=== PATIENT | female | born 1960 | race Caucasian/White ===

== ENCOUNTER 2020-05-25 15:41 | Outpatient (CLI) | payer BC, SELFPAY ==
--- NOTE | ~2020-05-25 | MM_ITS ---
EXAMINATION: MM screening [facility] BI w grupo HISTORY: Screening mammogram TECHNIQUE: Craniocaudal and mediolateral oblique 3-D tomosynthesis images were obtained and synthetic 2-D images were generated. CAD analysis was submitted and interpreted. COMPARISON: 11/05/2017, 10/29/2016, 03/12/2008 BREAST PARENCHYMAL COMPOSITION: The breasts are almost entirely fatty. FINDINGS: There is no evidence of suspicious mass, calcification, or architectural distortion to sugg est malignancy in either breast. There has been no suspicious interval change. IMPRESSION: 1. No mammographic evidence of malignancy. 2. Recommend routine screening mammography in one year. BI-RADS Category 1: Negative Reviewed, dictated and finalized at location A. ELAIN ENAMELING SUPERVISOR
== END 2020-05-25 15:42 | disposition home or self-care (01) ==
LOC: ANHIMG 15:47
PROVIDERS: PCP Internal Medicine; Visit Provider Obstetrics & Gynecology
DX: Z12.31 Encounter for screening mammogram for malignant neoplasm of breast (principal)
CPT/HCPCS: 77063; 77067

== ENCOUNTER 2021-11-08 10:57 | Emergency (ER) | payer BC, SELFPAY ==
--- NOTE | ~2021-11-08 | XR_ITS ---
XR abdomen/kub 1V 11/08/2021 12:23 Indication: Right flank pain. History of kidney stones. Procedure: KUB Comparison: Comparison to multiple prior studies sequentially, with oldest reviewed study dated 10/2005. Findings: There are bilateral renal stones. Bowel gas pattern is nonobstructive. No acute osseous abn ormality. Moderate colonic fecal loading. Impression: 1: Bilateral renal stones including stone likely located in the right renal pelvis at the L3 level. Reviewed, dictated and finalized at location A. Impression: 1: Bilateral renal stones including stone likely located in the right renal pel vis at the L3 level.
--- NOTE | 2021-11-08 11:23 | ED.BACK ---
HPI - Back Pain/Injury General Chief Complaint: Urogenital-Female Stated Complaint: back and side pain Time Seen by Provider: 11/08/21 11:23 Source: patient Mode of arrival: ambulatory Limitations: no limitations History of Present Illness HPI Narrative: Ms. Hayes is a 61-year-old female patient presenting to the clinic today with complaints of back and side pain x1 week. She reports she is having some right-sided flank pain that is radiating into her side/abdomen. History of kidney stones in the past. Denies any fever or chills. Denies any urinary symptoms at this time. Pain is sharp when it occurs and comes and goes in waves. Related Data Allergies Allergy/AdvReac Type Severity Reaction Status Date / Time No Known Allergies Verified 11/08/21 12:16 Review of Systems Review of Systems: Pertinent positives per HPI. Patient denies any fever, chills, rash, headache, visual changes, dizziness, cough, runny nose, sore throat, shortness of breath, chest pain, palpitations, nausea, vomiting, diarrhea, constipation, , or any urinary issues. PMFSH Comments At the time of my signature, I reviewed and agree with the nursing past medical, surgical, social, and family history. There is no relevant family history pertinent to the patient complaint. Exam Narrative: General: Well-developed, well nourished, in no apparent distress. Head: Normocephalic, atraumatic. Cardio: Regular rate and rhythm, s1 and s2 normal, no murmur appreciated. Resp: Clear to auscultation bilaterally, no rhonchi, rales, wheezing or rubs. Abdomen: Soft, pliable, bowel sounds present in all quadrants, non-tender to palpation, no organomegly, positive right-sided CVAT tenderness. Course Course Emergency Course: Portions of this record may have been created with voice recognition software. Level of Care: Express Care Visit Vital Signs Vital signs: Vital Signs Temperature 36.4 C L 11/08/21 11:32 Pulse Rate 79 11/08/21 11:32 Respiratory Rate 18 11/08/21 11:32 Blood Pressure 126/75 11/08/21 11:32 Pulse Oximetry 98 11/08/21 11:32 Oxygen Delivery Room Air 11/08/21 11:32 Temperature 36.4 C L 11/08/21 11:32 Pulse Rate 79 11/08/21 11:32 Respiratory Rate 18 11/08/21 11:32 Blood Pressure 126/75 11/08/21 11:32 Pulse Oximetry 98 11/08/21 11:32 Oxygen Delivery Room Air 11/08/21 11:32 Vital signs reviewed MDM - Back Pain/Injury MDM Narrative Medical decision making narrative: At the time of visit patient is resting comfortably on the exam table. UA shows trace of glucose, 1+ blood, and trace leukocyte. We will send for culture. X-ray was performed and shows bilateral renal stones with possible stone in the renal pelvis at L3. Blood sugar was completed in the office and was 119. Recommend follow-up with PCP and have a hemoglobin A1c completed. I suspect the patient has a kidney stone in the right renal pelvis and will give prescription for ketorolac and Flomax. Supportive measures were discussed and patient voiced understanding of discharge instructions. Differential Diagnosis Differential diagnosis: Likely lumbar radiculopathy, strain of lumbar region, renal colic and pyelonephritis (Urinary tract infection) Lab Data Labs: Lab Results 11/08/21 Range/Units 12:03 POC Capillary Glucose 119 H (65-105) mg/dl Urine Glucose Trace Reference Range: Negative Urine Bilirubin Negative Reference Range: Negative Urine Ketone Negative Reference Range: Negative Urine Specific [place] 1.030 Reference Range:1.001-1.035 Urine Blood 1+ Reference Range: Negative * *
[2021-11-08 11:32] VITALS: BP 126/75; PULSE 79; RESP 18; TEMP 36.4; O2SAT 98
[2021-11-08 12:07] LABS: Glucose Point of Care 119 mg/dl (65-105)
== END 2021-11-08 12:56 | disposition home or self-care (01) ==
PROVIDERS: Emergency Provider Nurse Practitioner Family
DX: N20.2 Calculus of kidney with calculus of ureter (principal)
CPT/HCPCS: 74018; 81003; 82948; 87086; 87088; 99213; G0463

== ENCOUNTER 2021-11-15 14:14 | Emergency (ER) | payer BC, SELFPAY ==
--- NOTE | ~2021-11-15 | XR_ITS ---
EXAMINATION: XR abdomen/kub 1V DATE: 11/15/2021 16:02 INDICATION: Right flank pain. TECHNIQUE: A supine view of the abdomen on 2 radiographs was obtained. COMPARISON: CT abdomen and pelvis 11/15/2021 FINDINGS: There are no dilated loops of bowel. There is a 7 mm stone in proximal right ureter at L4. There are stones in the kidneys measuring up to 5 mm on the right. IMPRESSION: 1. 7 mm stone in the proximal right ureter. 2. Bilateral kidney stones. Reviewed, dictated and finalized at location A.
--- NOTE | ~2021-11-15 | CT_ITS ---
EXAMINATION: CT abdomen pelvis wo con DATE: 11/15/2021 15:57 INDICATION: Right flank pain. TECHNIQUE: Computed tomography (CT) of the abdomen and pelvis was performed without intravenous contr ast. Automated exposure control and iterative reconstruction technique were employed. The dose-length product was 214.30 mGy-cm. COMPARISON: CT abdomen and pelvis 04/10/2007 FINDINGS: The visualized portions of the lung bases demonstrate mild atelectasis. A calcified left genoveva ng nodule and calcified left hilar lymph nodes are consistent with old granulomatous disease. No pleu ral effusion. The heart size is normal. No pericardial effusion. The liver, gallbladder, spleen, panc reas, and adrenal glands are normal. There are greater than 10 stones in right kidney measuring up to 5 mm. There is mild right hydronephrosis and hydroureter. There is a 7 mm stone in proximal right ur eter. There are 6 stones in left kidney measuring up to 4 mm. There are no dilated loops of bowel. Th e appendix is normal. There are no pathologically enlarged lymph nodes. There is no free intraperiton eal fluid. There is severe lower lumbar spondylosis. IMPRESSION: 1. 7 mm stone in proximal right ureter with mild right hydronephrosis and hydroureter. 2. Bilateral nonobstructing kidney stones. Reviewed, dictated and finalized at location A. IMPRESSION: 1. 7 mm stone in proximal right ureter with mild right hydronephrosis and hydro ureter. 2. Bilateral nonobstructing kidney stones.
[2021-11-15 14:25] VITALS: BP 159/98; PULSE 84; RESP 16; TEMP 36.8; O2SAT 100
[2021-11-15 14:34] LABS: Basophils Percent Auto 0.6 % (0.2-1.2); Eosinophils Absolute Auto 0.3 K/mm3 (0-0.3); Eosinophils Percent Auto 4.6 % (0-4.4); Hematocrit 39.4 % (37.0-47.0); Hemoglobin 13.7 g/dL (12.0-15.0); Immature Granulocyte Absolute 0.02 K/mm3 (0.00-0.031); Immature Granulocyte Percent A 0.3 % (0-0.5); Lymphocytes Absolute Auto 2.31 K/mm3 (0.9-3.2); Lymphocytes Percent Auto 32.2 % (18.3-44.2); Mean Corpuscular HGB Conc 34.8 g/dl (32-36); Mean Corpuscular Hemoglobin 32.5 pg (26-34); Mean Corpuscular Volume 93.6 fl (80-100); Mean Platelet Volume 8.5 fl (7.4-10.4); Monocytes Absolute Auto 0.5 K/mm3 (0.1-0.6); Monocytes Percent Auto 6.7 % (2.6-8.5); Neutrophils Percent Auto 55.6 % (45.5-73.1); Platelet Count Result 289 k/mm3 (150-375); Red Blood Count 4.21 M/mm3 (4.2-5.4); Red Cell Distribution Width 11.8 % (11.5-14.5); White Blood Count 7.2 K/mm3 (4.5-10.0)
[2021-11-15 14:45] LABS: Alanine Aminotransferase 23 U/L (6-35); Albumin Level 4.3 g/dL (3.5-5.1); Alkaline Phosphatase 57 U/L (38-126); Anion Gap 9 mmol/L (8-16); Aspartate Amino Transferase 27 U/L (14-36); Bilirubin,Total 0.5 mg/dL (0.2-1.3); Blood Urea Nitrogen 17 mg/dL (7-17); Calcium 9.1 mg/dL (8.4-10.2); Carbon Dioxide 27 mmol/L (22-30); Chloride 102 mmol/L (98-107); Estimated CRCL calculation 66 ml/min; Estimated Glomerular Filt Rate > 60; Glucose 114 mg/dL (65-110); Potassium 3.5 mmol/L (3.4-5.0); Sodium 138 mmol/L (137-145)
[2021-11-15 15:26] LABS: Appearance Urine Clear (Clear); Bilirubin Urine Negative (Negative); Blood Urine 2+ (Negative); Glucose Urine UA Negative (Negative); Ketones Urine Negative (Negative); Leukocyte Esterase Ur Trace LEU/UL (Negative); Nitrate Urine Negative (Negative); Protein Urine Negative (Negative); Urobilinogen Urine 0.2 mg/dL (<2.0)
[2021-11-15 15:33] LABS: Mucus Urine Rare /lpf; RBC Urine 0-2 /hpf (0-2); Squamous Epithelial Cell Urine Rare /hpf (Few)
[2021-11-15] MEDS: SODIUM CHLORIDE 0.9% IV 1,000 ML 999 ML IV CONT (15:33)
[2021-11-15] MEDS: MORPHINE SULFATE (*CRX) 4 MG/ML INJ IV PUSH (15:34)
[2021-11-15] MEDS: ONDANSETRON INJ 4 MG/2 ML VIAL IV PUSH (15:34)
[2021-11-15 15:35] LABS: Add Urine Microscopic? YES; Color Urine Light Yellow (Yellow)
[2021-11-15 15:42] VITALS: O2SAT 98
--- NOTE | 2021-11-15 15:42 | ED.GENADULT ---
HPI - General Adult General Chief complaint: Abdominal Pain Stated complaint: right flank pain Time Seen by Provider: 11/15/21 15:00 Source: patient, RN notes reviewed and old records reviewed Mode of arrival: ambulatory Limitations: no limitations History of Present Illness HPI narrative: This is a 61 year old female with history of kidney stones who presents for evaluation for right flank pain. She developed pain on 11/03/21. She states her pain has been waxing and waning. She also states her pain is intermittently radiating to right hip and right lower abdomen. Today her pain was worsening. She was evaluated at [facility] last week and she was told she has kidney stone on her xray. She was prescribed toradol for her pain and she has been taking flomax. She has appointment with her urologist tomorrow but she wanted to find out for sure if she had stone. She denies nausea, vomiting , fever, chills or dysuria. Related Data Allergies Allergy/AdvReac Type Severity Reaction Status Date / Time No Known Allergies Verified 11/15/21 14:28 Review of Systems Review of Systems: All systems reviewed & are unremarkable except as noted in HPI and below Constitutional: Constitutional: Denies chills, Denies fatigue and Denies fever(s) Cardiovascular: Cardiovascular: Denies chest pain Gastrointestinal: Gastrointestinal: Reports abdominal pain, Denies nausea and Denies vomiting Genitourinary: Genitourinary: Reports hematuria, Denies dysuria and Reports flank pain Musculoskeletal: Musculoskeletal: Reports back pain PMFSH Past Medical History Medical History (Updated 11/15/21 @ 22:23 by Ashley Atwood MD) Kidney stone Surgical History Surgical History (Updated 11/15/21 @ 22:23 by Ashley Atwood MD) H/O lithotripsy Social History Social History (Updated 11/15/21 @ 22:24 by Ashley Atwood MD) Smoking status: Never smoker Alcohol intake: never Substance use: never Exam Const: General: no acute distress and alert Nutritional Appearance: well nourished Orientation/consciousness: patient oriented x3 HENMT: Head: normal to inspection Eyes: EOM: EOMs intact bilaterally Resp: Effort & Inspection: normal respiratory effort Auscultation: clear to auscultation bilaterally Cardio: Rate: regular rate Rhythm: regular rhythm Heart sounds: no murmurs GI: GI Palp: Yes Soft to palpation, No Tenderness to palpation present (GI) and No Guarding due to palpation present (GI) Auscultation: normal bowel sounds : General: Yes no CVA tenderness Back/Spine/Pelvis: Back: no CVA tenderness Skin: General skin exam: normal color Rashes: no rashes Wounds: no wounds Neuro: General: patient oriented x3, moves all extremities and CN's II-XI intact bilaterally Extrem: General: normal to inspection Psych: Mental Status: mental status grossly normal Affect: normal affect Attitude: cooperative Course Reevaluation(s) Reevaluation #1: PAtient states her pain is controlled. I discussed labs are unremarkable other than possible UTI. She has not fever, chills . She has appointment with urology tomorrow. I discussed for her not to take NSAIDS any more. She is agreeable with discharge plan and follow up . Date: 11/15/21 Time: 16:44 Vital Signs Vital signs: Vital Signs Temperature 98.3 F 11/15/21 14:25 Pulse Rate 84 11/15/21 14:25 Respiratory Rate 16 11/15/21 14:25 Blood Pressure 159/98 H 11/15/21 14:25 Pulse Oximetry 100 11/15/21 14:25 Oxygen Delivery Room Air 11/15/21 14:25 Temperature 98.3 F 11/15/21 14:25 Pulse Rate 60 11/15/21 17:56 Respiratory Rate 16 11/15/21 17:56 Blood Pressure 149/85 H 11/15/21 17:56 Pulse Oximetry 98 11/15/21 17:56 Oxygen Delivery Room Air 11/15/21 14:25 Medical Decision Making Vital Signs Vital Signs: Vital Signs Temperature 98.3 F 11/15/21 14:25 Pulse Rate 84 11/15/21 14:25 Respiratory Rate 1
[2021-11-15 15:45] VITALS: O2SAT 97
[2021-11-15 15:46] VITALS: BP 134/78; O2SAT 98
--- NOTE | 2021-11-15 16:36 | PC.NURSE ---
Patient ambulatory to BR with steady gait. Reports that nausea and pain have resolved at this time.
[2021-11-15 17:56] VITALS: BP 149/85; PULSE 60; RESP 16; O2SAT 98
== END 2021-11-15 17:58 | disposition home or self-care (01) ==
PROVIDERS: Emergency Medicine; Emergency Provider General Practice
DX: N13.2 Hydronephrosis with renal and ureteral calculous obstruction (principal); Z87.442 Personal history of urinary calculi
CPT/HCPCS: 36415; 74018; 74176; 80053; 81001; 85025; 87086; 96361; 96374; 96375; 99284; J2270; J2405; J7030

== ENCOUNTER 2023-01-03 17:02 | Emergency (ER) | payer BC, SELFPAY ==
--- NOTE | 2023-01-03 17:08 | ED.URI ---
HPI - URI/Sore Throat General Chief Complaint: Upper Respiratory Infection Stated Complaint: Congestion,Bilateral Ear Irritation Time Seen by Provider: 01/03/23 17:08 Source: patient Mode of arrival: ambulatory Limitations: no limitations History of Present Illness HPI Narrative: Patient is a 8-year-old female who presents with 10 days of congestion, sinus pressure and bilateral ear fullness. Patient states she has been taking [id number] Tylenol cold and flu with no relief. Denies any sick contacts. Denies any fever, chills, nausea, vomiting, diarrhea, sore throat, cough. Related Data Allergies Allergy/AdvReac Type Severity Reaction Status Date / Time No Known Allergies Allergy Verified 01/03/23 17:29 Review of Systems Review of Systems: All systems reviewed & are unremarkable except as noted in HPI and below Constitutional: Constitutional: Denies body ache(s), Denies chills, Denies fatigue, Denies fever(s), Denies headache(s), Denies malaise and Denies weakness Eyes: Eyes: Denies blurry vision, Denies irritation and Denies loss of vision ENT: Reports otalgia (Fullness), Denies headache(s), Reports nasal discharge, Reports sinus pain, Reports sinus pressure and Denies sore throat Cardiovascular: Cardiovascular: Denies chest pain, Denies irregular heart rhythm and Denies dyspnea Respiratory: Respiratory: Denies dyspnea Gastrointestinal: Gastrointestinal: Denies abdominal pain, Denies melena, Denies hematochezia, Denies diarrhea, Denies nausea and Denies vomiting Musculoskeletal: Musculoskeletal: Denies back pain, Denies myalgias and Denies arthralgias Integumentary/Breasts: Skin/Breast: Denies pruritus and Denies rash Neurologic: Denies headache(s), Denies loss of vision and Denies weakness Psychiatric: Psychiatric: Reports no additional psychiatric complaints Endocrine: Endocrine: Denies fatigue PMFSH Past Medical History Medical History Kidney stone Surgical History Surgical History H/O lithotripsy Social History Social History Smoking status: Never smoker Alcohol intake: never Substance use: never Comments At time of signature, agree with nursing past medical, surgical, social and family history. There is no relevant family history pertinent to the presenting complaint. Exam Const: General: cooperative, healthy appearing, comfortable, no acute distress and well nourished Nutritional Appearance: well nourished Orientation/consciousness: patient oriented x3 Limitations: no limitations HENMT: Head: normal to inspection, normocephalic and atraumatic Ears: hearing grossly normal bilaterally, external ears normal, TM's normal bilaterally and EAC's normal Face/Nose/Sinus: Normal external nose present, normal facial exam, face symmetric and Facial tenderness on exam of face and sinuses Face and sinus: normal facial exam and face symmetric Mouth: Yes Normal oral and palatal mucosa present, Yes lip normal and Yes tongue normal Throat: posterior oropharynx normal, tonsils normal and uvula midline Eyes: General: appearance normal, both eyes and all related structures Alignment and Position: alignment normal and position normal Periorbital: periorbital findings normal Eyelids: eyelids normal Pupils: Equal, round and reactive pupils present EOM: EOMs intact bilaterally Neck: Neck: normal visual inspection, full ROM and supple Chest: Chest palpation & inspection: normal inspection of the chest Resp: Effort & Inspection: normal respiratory effort and able to speak in complete sentences Auscultation: clear to auscultation bilaterally, no crackles, no rales, no rhonchi and no wheezes Cardio: Rate: regular rate Rhythm: regular rhythm Heart sounds: S1 normal heart sound present and S2 normal heart sound present GI: Inspection: nor
[2023-01-03 17:14] VITALS: BP 146/84; PULSE 70; RESP 18; TEMP 36.5; O2SAT 98
== END 2023-01-03 17:47 | disposition home or self-care (01) ==
PROVIDERS: Emergency Provider Nurse Practitioner Family
DX: J01.40 Acute pansinusitis, unspecified (principal)
CPT/HCPCS: 99213; G0463

== ENCOUNTER 2024-06-06 10:20 | Emergency (ER) | payer OTHER, SELFPAY ==
--- OUTSIDE RECORDS SUMMARY | 2024-06-06 10:22 | XMS_ITS | Referral Summary ---
Author Organization [facility] Address [address] [address] Care Team Providers Care Supervisor Type Disk Quality Control Name Role Phone Unavailable Primary Care Provider Unavailabl e Source Comments [facility],non-owned Affiliates and Associated Physician Practices is amultiple site organization consisting of ambulatory clinics and hospital sitesin [place], [place], [place] and [place]. This disclosure is being madepursuant to the Care Everywhere program and may not contain all information available regarding this patient. Last updated 17.[facility] [place] Social History Tobacco Use Types Packs/Day Years Used Date Smoking Tobacco: Never Assessed Sex and Gender Information Value Date Recorded Sex Assigned at Not on file Gender Identity Not on file Sexual Orientation Not on file Plan of Treatment Not on file
--- OUTSIDE RECORDS SUMMARY | 2024-06-06 10:22 | XMS_ITS | Patient Health Summary ---
Author Organization [facility] Address [address] [place] [address] Care Team Providers Care Floodplain Manager Name Role Phone Unavailable Primary Care Provider Unavailabl e Note from [facility],non-owned Affiliates and Associated Physician Practices is amultiple site organization consisting of ambulatory clinics and hospital sitesin [place], [place], [place] and [place]. This disclosure is being madepursuant to the Care Everywhere program and may not contain all information available regarding this patient. Last updated 17.[facility] Social History Tobacco Use Types Packs/Day Years Used Date Smoking Tobacco: Never Assessed Sex and Gender Information Value Date Recorded Sex Assigned at Not on file Gender Identity Not on file Sexual Orientation Not on file Procedures * DERMATOPATHOLOGY(Performed 04/16/2023) * DERMATOPATHOLOGY(Performed 04/13/2022) Results * DERMATOPATHOLOGY (04/16/2023 12:00 AM [facility]) Only the most recent of2 resultswithin the time period is included. Case Report Dermatopathology Report Case: [id number] Authorizing Provider: Aldo Berry MD Collected: 04/16/2023 12:00 AM Ordering Location: [facility] DermPath Lab Received: 04/16/2023 03:30 PM Pathologist: Nicole Perez MD Specimen: Skin, right med lower leg 4 11:04 AM [facility] DERMATOPATHOLOGY LABORATORY Final Diagnosis Specimen A. 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 KA. Path# [id number] 4 11:04 AM [facility] DERMATOPATHOLOGY LABORATORY Gross Description Specimen A: Received is one formalin filled container labeled with the patient's name and designated right med lower leg. The specimen consists of a shave biopsy measuring 8x8x2 mm. Jar 0. 11:04 AM [facility] DERMATOPATHOLOGY LABORATORY Microscopic Description Specimen A. SKIN, right med lower leg: Sections show an endo exophytic crateriform lesion with a keratotic plug, formed by confluent follicle-like structures with relatively large keratinocytes and neutrophilic abscesses. 4 11:04 AM [facility] DERMATOPATHOLOGY LABORATORY Disclaimer An external and internal positive and negative controls are appropriate for the histochemical, immunohistochemical and immunofluorescence stain(s) in this case (if any), except where stated explicitly. The performance characteristics of the stain(s) cited in this report were developed and its performance characteristic determined by the Dermatopathology Laboratory at [facility], directed by Dr. Dayami Vega. These tests need not be, and therefore are not, approved by the [place] Food and Drug Administration. The tests are used for clinical purposes. Billing Codes Specimen Charges Stain Charges 94186 1 4 11:04 AM [facility] DERMATOPATHOLOGY LABORATORY Embedded Images 11:04 AM [facility] DERMATOPATHOLOGY LABORATORY Pathology/Cytolog y TISSUE SPECIMEN FROM SKIN / Unknown 04/16/2023 04/16/2023 3:30 PM SUPERINTENDENT COMPRESSOR STATIONS Aldo Berry MD LAB - PATHOLOGY/CYTO LOGY ORDERABLES DERMATOPATHOLOGY LABORATORY [facility] - Department of Dermatology [address], [address] [phone]
--- OUTSIDE RECORDS SUMMARY | 2024-06-06 10:22 | XMS_ITS | Encounter Summary ---
Author Organization [facility] Address [address] [place] [address] Care Team Providers Care Customer Service Assistant Name Role Phone Unavailable Primary Care Provider Unavailabl e Encounter Details Date Type Department Care Team (Late st Contact Info) Description 04/16/2023 Lab Requisition [facility] - DermPath Lab [address] [place] [id number] Aldo Berry MD [address] [place] [address] Social History Tobacco Use Types Packs/Day Years Used Date Smoking Tobacco: Never Assessed Sex and Gender Information Value Date Recorded Sex Assigned at Not on file Gender Identity Not on file Sexual Orientation Not on file documented as of this encounter Plan of Treatment Not on file documented as of this encounter Procedures Procedure Name Priority Date/Time Associated Diagnosis Comments DERMATOPATHOLOGY Routine 04/16/2023 12:0 0 AM INVESTIGATIVE ASSISTANT documented in this encounter Results * DERMATOPATHOLOGY (04/16/2023 12:00 AM INVESTIGATIVE ASSISTANT) Case Report Dermatopathology Report Case: [id number] Authorizing Provider: Aldo Berry MD Collected: 04/16/2023 12:00 AM Ordering Location: [facility] DermPath Lab Received: 04/16/2023 03:30 PM Pathologist: Nicole Perez MD Specimen: Skin, right med lower leg 11:04 AM INVESTIGATIVE ASSISTANT DERMATOPATHOLOGY LABORATORY Final Diagnosis Specimen A. SKIN, right med lower leg: SQUAMOUS CELL CARCINOMA, KERATOACANTHOMA TYPE (C44.722) 4 11:04 AM [facility] DERMATOPATHOLOGY LABORATORY Clinical History Invasive SCCA vs. KA. Path# [id number] 11:04 AM [facility] DERMATOPATHOLOGY LABORATORY Gross Description Specimen A: Received is one formalin filled container labeled with the patient's name and designated right med lower leg. The specimen consists of a shave biopsy measuring 8x8x2 mm. Jar 0. 11:04 AM [facility] DERMATOPATHOLOGY LABORATORY Microscopic Description Specimen A. SKIN, right med lower leg: Sections show an endo exophytic crateriform lesion with a keratotic plug, formed by confluent follicle-like structures with relatively large keratinocytes and neutrophilic abscesses. 11:04 AM [facility] DERMATOPATHOLOGY LABORATORY Disclaimer An external and internal positive and negative controls are appropriate for the histochemical, immunohistochemical and immunofluorescence stain(s) in this case (if any), except where stated explicitly. The performance characteristics of the stain(s) cited in this report were developed and its performance characteristic determined by the Dermatopathology Laboratory at [facility], directed by Dr. Dayami Vega. These tests need not be, and therefore are not, approved by the [place] Food and Drug Administration. The tests are used for clinical purposes. Billing Codes Specimen Charges Stain Charges 48814 1 11:04 AM [facility] DERMATOPATHOLOGY LABORATORY Embedded Images 11:04 AM [facility] DERMATOPATHOLOGY LABORATORY Pathology/Cytolog y TISSUE SPECIMEN FROM SKIN / Unknown 04/16/2023 04/16/2023 3:30 PM INVESTIGATIVE ASSISTANT Aldo Berry MD LAB - PATHOLOGY/CYTO LOGY ORDERABLES DERMATOPATHOLOGY LABORATORY [facility] - Department of Dermatology [address] [phone] documented in this encounter Visit Diagnoses Not on filedocumented in this encounter
--- OUTSIDE RECORDS SUMMARY | 2024-06-06 10:22 | XMS_ITS | Encounter Summary ---
Author Organization [facility] Health Address [address] [place] [address] Care Team Providers Care Merchandise Shopper Name Role Phone Unavailable Primary Care Provider Unavailabl e Encounter Details Date Type Department Care Team (Late st Contact Info) Description 04/17/2022 Lab Requisition [facility] DermPath Lab [address] [place] [address] Aldo Berry MD [address] [place], [place] [id number] Social History Tobacco Use Types Packs/Day Years Used Date Smoking Tobacco: Never Assessed Sex and Gender Information Value Date Recorded Sex Assigned at Not on file Gender Identity Not on file Sexual Orientation Not on file documented as of this encounter Plan of Treatment Not on file documented as of this encounter Procedures Procedure Name Priority Date/Time Associated Diagnosis Comments DERMATOPATHOLOGY Routine 04/13/2022 12:0 0 AM JUNIOR ENGINEER documented in this encounter Results * DERMATOPATHOLOGY (04/13/2022 12:00 AM JUNIOR ENGINEER) Case Report Dermatopathology Report Case: [id number] Authorizing Provider: Aldo Berry MD Collected: 04/13/2022 12:00 AM Ordering Location: [facility] DermPath Lab Received: 04/17/2022 07:53 AM Pathologist: Emma Mejia MD Specimen: Skin, right mid dorsum hand 1:48 PM JUNIOR ENGINEER DERMATOPATHOLOGY LABORATORY Final Diagnosis Specimen A. SKIN, right mid dorsum hand: SQUAMOUS PROLIFERATION (D48.5) (see microscopic description and comment) 3 1:48 PM [facility] DERMATOPATHOLOGY LABORATORY Clinical History VV vs SCC Path# [id number] 3 1:48 PM [facility] DERMATOPATHOLOGY LABORATORY Gross Description Specimen A: Received is one formalin filled container labeled with the patient's name and designated right mid dorsum hand. The specimen consists of a shave biopsy measuring 6x4x1 mm. Jar 0. 3 1:48 PM [facility] DERMATOPATHOLOGY LABORATORY Microscopic Description Specimen A. SKIN, right mid dorsum hand: Sections show endophytic proliferation with focal maturational disarray and nuclear pleomorphism of keratinocytes extending throughout the full thickness of the specimen. There is focal parakeratosis. The base of this lesion is not visualized. Additional deeper sections were obtained and reviewed. COMMENT: The histological differential diagnosis includes an superficial portions of a inflamed verruca, inflamed epidermal cyst, and squamous cell carcinoma. 3 1:48 PM [facility] DERMATOPATHOLOGY LABORATORY Disclaimer An external and internal positive and negative controls are appropriate for the histochemical, immunohistochemical and immunofluorescence stain(s) in this case (if any), except where stated explicitly. The performance characteristics of the stain(s) cited in this report were developed and its performance characteristic determined by the Dermatopathology Laboratory at [facility], directed by Dr. Dayami Vega. These tests need not be, and therefore are not, approved by the [place] Food and Drug Administration. The tests are used for clinical purposes. Billing Codes Specimen Charges Stain Charges 12396 1 3 1:48 PM [facility] DERMATOPATHOLOGY LABORATORY Embedded Images 3 1:48 PM [facility] DERMATOPATHOLOGY LABORATORY Pathology/Cytolog y TISSUE SPECIMEN FROM SKIN / Unknown 04/13/2022 04/17/2022 7:53 AM JUNIOR ENGINEER Aldo Berry MD LAB - PATHOLOGY/CYTO LOGY ORDERABLES DERMATOPATHOLOGY LABORATORY [facility] - Department of Dermatology [address], [address] [phone] documented in this encounter Visit Diagnoses Not on filedocumented in this encounter
--- OUTSIDE RECORDS SUMMARY | 2024-06-06 10:22 | XMS_ITS | Clinical Summary ---
Author Organization [facility] Address [address] [place] [address] Care Team Providers Care Piping Blocker Name Role Phone Shakeel Canada MD Primary Care Provider [phone] Allergies No known active allergies Medications Multiple Vitamins-Minera ls (MULTIVITAMIN ADULT OR) Active Guselkumab (TREMFYA) 100 MG/ML Solution Pen-injector Inject 100 mg into the skin every 28 days. Every 8-10 weeks Active omeprazole (PRILOSEC) 40 MG capsuleIndicati ons:Heartburn TAKE 1 CAPSULE (40 MG TOTAL) BY MOUTH DAILY. 90 capsule 1 4 Active benzonatate (TESSALON PERLES) 100 MG capsuleIndicati ons:COVID Take 1 capsule (100 mg total) by mouth 3 (three) times daily as needed. 40 capsule 5 Active nirmatrelvir & ritonavir 150/100 (PAXLOVID) 10 x 150 MG & 10 x 100MG tablet packIndications :COVID Take ONE nirmatrelvir 150 mg tablet with ONE ritonavir 100 mg tablet, with both tablets taken together, twice daily for 5 days. May take with or without food. Swallow tablets whole. Do not chew, break or crush. 20 tablet 5 Active Active Problems Problem Noted Date Diagnosed Date Esophageal dysphagia 11/28/2023 Personal history of colonic polyps 11/28/2023 Heartburn 11/28/2023 Encounters Date Type Department Care Team Description 04/07/2024 8:00 AM FULL STACK WEB DEVELOPER Office Visit [facility] Family & Internal Medicine [address] [address] [place] Congestion (Head-sinus, runny nose, stuffy, coughing, left ear pain) 04/07/2024 Travel from Last 3 Months Immunizations Name Administration Dates Next Due MODERNA COVID-19 (12+) MRNA, LNP-S, PF, 100 MCG/ 0.5 ML DOSE 01/17/2021,11/01/2020 Family History Medical History Relation Comments Cancer Father Pancreas Disease Father Hypertension Mother Stroke Mother Cancer Sister skin cancer Sister Relation Status Comments Brother Alive Father Mother Alive Sister Social History Tobacco Use Types Packs/Day Years Used Date Smoking Tobacco: Never Smokeless Tobacco: Never Tobacco Cessation:Counseling Given: No Alcohol Use Standard Drinks/Week Comments Yes 0 (1 standard drink = 0.6 oz pur e alcohol) rarely PHQ-2 Answer Date Recorded Patient Health Questionnaire-2 Score 0 04/07/2024 Comments No Sex and Gender Information Value Date Recorded Sex Assigned at Not on file Legal Sex Female 7:31 PM CDT Gender Identity Not on file Sexual Orientation Not on file Last Filed Vital Signs Vital Sign Reading Time Taken Comments Blood Pressure 138/80 04/07/2024 7:48 AM FULL STACK WEB DEVELOPER Pulse 73 04/07/2024 7:48 AM FULL STACK WEB DEVELOPER Temperature 36.1 C (97 F) 04/07/2024 7:48 AM FULL STACK WEB DEVELOPER Respiratory Rate 20 04/07/2024 7:48 AM FULL STACK WEB DEVELOPER Oxygen Saturation 97% 04/07/2024 7:48 AM FULL STACK WEB DEVELOPER Inhaled Oxygen Concentration - - Weight 82.1 kg (181 lb) 04/07/2024 7:48 AM FULL STACK WEB DEVELOPER Height 162.6 cm (5' 4 ) 04/07/2024 7:48 AM FULL STACK WEB DEVELOPER Body Mass Index 31.07 04/07/2024 7:48 AM FULL STACK WEB DEVELOPER Plan of Treatment Health Maintenance Due Date Last Done Comments Annual Physical 1965 Hepatitis C 1980 DTaP, Tdap and Td Vaccines ( 1 - Tdap) 1981 Zoster Vaccines (1 of 2) 2012 COVID-19 Vaccine (3 - 2023-2 5 season) 2023 01/17/2021, 11/01/2020 Influenza Adult (#1) 2023 Mammogram Screening 05/14/2025 05/14/2023 Colorectal Cancer Screening Colonoscopy (10 Years) 12/03/2033 12/04/2023, 11/18/2018, 11/14/2018 RSV Immunization or 60+ Years (1 - 1-dose 75+ series) 2037 PHQ-2 (Physician [place]) Completed 04/07/2024 Meningococcal B Vaccine Aged Out No l onger eligible based on patient's age to complete this topic Meningococcal Vaccine Aged Out No juan luis robb eligible based on patient's age to complete this topic Pneumococcal Vaccine: Pediatrics (0 to 5 Years) and At-Risk Patients (6 to 64 Years) Aged Out No longer eligible b ased on patient's age to complete this topic RSV Immunizations Under 20 Months Aged Out No longer eligible b ased on patient's age to complete this topic Procedures Procedure Name Priority Date/Time Associated Diagnosis Comments CORONAVIRUS (COVID-19) INFLUENZA A & B ANTIGEN IA PANEL Routine 04/07/2024 Suspected COVID-19 virus infection MG SCREENING W ANTONY DEVON DIGI Routine 05/14/2023 8:20 AM FULL STACK WEB DEVELOPER Encounter for screening mammogram for malignant neoplasm of breast COLONOSCOPY/EGD GENERIC (SCAN ORDER) Routine 11/18/2018 from Last 3 Months or Most Recently Relevant to Health Maintenance Results * (ABNORMAL) CORONAVIRUS (COVID-19) INFLUENZA A & B ANTIGEN IA PANEL (04/07/2024) CORONAVIRUS ANTIGEN IA POSITIVE(A) NEGATIVE [id number], [place] INFLUENZA A NEGATIVE NEGATIVE [id number], [facility] INFLU[facility] B NEGATIVE NEGATIVE [id number], [facility] Internal Control: VALID VALID [id number], [place] NASAL STRUCTURE / Unknown 04/07/2024 us Renee MEYER MICROBIOLOGY - GENERAL ORDER RAUL Final Result -[id number], [place] [address] [place] [address], [place] [phone] * MG SCREENING W ANTONY DEVON DIGI (05/14/2023 8:20 AM FULL STACK WEB DEVELOPER) Anatomical Region Laterality Modality Breast Bilateral Mammography 07/09/2023 2:48 PM CDT Impressions 07/09/2023 2:49 PM CDT IMPRESSION: No suspicious mammographic findings. Recommendation: 1. Routine Screening, Bilateral Assessment: ACR BI-RADS 2 - BENIGN FINDING(S) Ordered By: DORYS HINOJOSA Interpreted By: Leo Cordova, 07/09/2023 2:48 PM Narrative 07/09/2023 2:49 PM CDT Examination: Screening bilateral mammogram Exam Date/Time: 05/14/2023 8:12 AM Clinical history: No current complaints. Comparison: 05/25/2020 Technique: Digital screening mammography of both breasts was performed. Breast tomosynthesis acquisitions were obtained and reviewed. This study was read with the assistance of a computer-aided detection system. Tissue density: There are scattered areas of fibroglandular density. Findings: No suspicious masses, malignant appearing calcifications, skin thickening or other abnormalities are present. No significant change from the prior exam. Procedure Note Leo Cordova MD - 07/09/2023 Examination: Screening bilateral mammogram Exam Date/Time: 05/14/2023 8:12 AM Clinical history: No current complaints. Comparison: 05/25/2020 Technique: Digital screening mammography of both breasts was performed.Breast tomosynthesis acquisitions were obtained and reviewed. This studywas read with the assistance of a computer-aided detection system. Tissue density: There are scattered areas of fibroglandular density. Findings: No suspicious masses, malignant appearing calcifications, skinthickening or other abnormalities are present. No significant change fromthe prior exam. IMPRESSION: No suspicious mammographic findings. Recommendation: 1. Routine Screening, Bilateral Assessment: ACR BI-RADS 2 - BENIGN FINDING(S) Ordered By: DORYS HINOJOSA Interpreted By: Leo Cordova, 07/09/2023 2:48 PM us Dorys R Jahaira INSURANCE ACCOUNT REPRESENTATIVE MAMMO Final Resul t * COLONOSCOPY/EGD (11/18/2018) us Documents Scanned SCANNING Final Result from Last 3 Months or Most Recently Relevant to Health Maintenance Insurance Care Teams Piping Blocker Relationship Specialty Start Date End Date Shakeel Canada MD [address] [place] [address] PCP - General FAMILY PRACTICE 11/16/22
--- OUTSIDE RECORDS SUMMARY | 2024-06-06 10:22 | XMS_ITS | Clinical Summary ---
Author Organization [facility] Address [address] [place] [address] Care Team Providers Care Beauty School Instructor Name Role Phone Unavailable Primary Care Provider Unavailabl e Source Comments [facility],non-owned Affiliates and Associated Physician Practices is amultiple site organization consisting of ambulatory clinics and hospital sitesin [place], [place], [place] and [place]. This disclosure is being madepursuant to the Care Everywhere program and may not contain all information available regarding this patient. Last updated 17.[facility] Social History Tobacco Use Types Packs/Day Years Used Date Smoking Tobacco: Never Assessed Sex and Gender Information Value Date Recorded Sex Assigned at Not on file Gender Identity Not on file Sexual Orientation Not on file Plan of Treatment Health Maintenance Due Date Last Done Comments COLOGUARD (AGES 45-75) - COL ON CA SCREENING 1962 COLON MONITORING 1962 COLONOSCOPY - COLON CA SCREENING 1962 CT COLONOGRAPHY - COLON CA SCREENING 1962 Colorectal Cancer Screening 1962 FIT - COLON CA SCREENING 1962 FLEX SIG - COLON CA SCREENING 1962 LIPID TESTING 1962 MAMMOGRAM 1962 PAP SMEAR 1962 HIV SCREENING 1977 HEPATITIS C SCREENING 05/14/1980 DTAP/TDAP/TD VACCINES (1 - Tdap) 1981 PNEUMOCOCCAL VACCINE 50+ (1 of 1 - PCV) 2012 ZOSTER VACCINE (1 of 2) 2012 COVID-19 VACCINE (1 - 2023-2 5 season) 2023 INFLUENZA VACCINE (#1) 2023 DEPRESSION SCREENING 04/01/2024 Respiratory Syncytial Virus (RSV) Vaccine Pt: or over 60 yrs (1 - 1-dose 75+ series) 2037 HEPATITIS B VACCINE Aged Out No longe r eligible based on patient's age to complete this topic HIB VACCINE Aged Out No longer eligi ble based on patient's age to complete this topic HPV VACCINE Aged Out No longer eligi ble based on patient's age to complete this topic MENINGOCOCCAL (Group B) VACCINE Aged Out No longer eligible based on patient's age to complete this topic MENINGOCOCCAL VACCINE Aged Out No juan luis robb eligible based on patient's age to complete this topic PNEUMOCOCCAL VACCINE Aged Out No long er eligible based on patient's age to complete [place] [place] [address] Minnie Hayes Personal/Family Self [address] [place] [address]
--- OUTSIDE RECORDS SUMMARY | 2024-06-06 10:22 | XMS_ITS | Clinical Summary ---
Author Organization [facility] Address [address] [address] Phone Care Team Providers Care Foundry Finisher Name Role Phone Terence Lundberg MD Primary Care Provider [phone] Social History Tobacco Use Types Packs/Day Years Used Date Smoking Tobacco: Never Assessed Comments Unknown Sex and Gender Information Value Date Recorded Sex Assigned at Not on file Legal Sex Female 11:25 AM CDT Gender Identity Not on file Sexual Orientation Not on file Plan of Treatment Health Maintenance Due Date Last Done Comments Hepatitis C Virus (HCV) Screening 1962 TdaP Immunization 1962 Pap Smear 1983 Cervical Cancer Screening (CCS) 1992 HPV/Cotest 1992 Colonoscopy 2007 Colorectal Cancer Screening 2007 Cologuard 2012 Immunochemical Fecal Occult Blood 2012 Mammogram 2012 Pneumococcal Immunization (5 0+ years) (1 of 1 - PCV) 2012 Zoster Immunization (1 of 2) 2012 Influenza Immunization (#1) 2023 SARS-COV-2 Immunization ( - 2023-25 season) 2023 Respiratory Syncytial Virus (RSV) Immunization (Adult) (1 - 1-dose 75+ series) 2037 Hepatitis B Immunization Aged Out No longer eligible based on patient's age to complete this topic Meningococcal Immunization (ACWY) Aged Out No longer eligible based on patient's age to complete this topic Pneumococcal Immunization Combined Aged Out No longer eligible based on patient's age to complete this topic Rotavirus Immunization Aged Out No lo nger eligible based on patient's age to complete this topic Care Teams Foundry Finisher Relationship Specialty Start Date End Date Terence Lundberg MD [address] [place] [id number] PCP - General Internal Medicine 07/02/18
[2024-06-06 10:45] VITALS: BP 144/84; PULSE 76; RESP 18; TEMP 36.3; O2SAT 99
--- NOTE | 2024-06-06 10:59 | ED.URI ---
HPI - URI/Sore Throat General Chief Complaint: Upper Respiratory Infection Stated Complaint: cold like Source: patient Mode of arrival: ambulatory Limitations: no limitations History of Present Illness HPI Narrative: 64-year-old female presents to [facility] with complaints of headache, body aches, scratchy throat, nasal congestion and right ear fullness for the past 3 days. Patient reports that her grandchildren were recently ill with cold-like symptoms as well as ear infections. Patient is a nonsmoker. Patient reports that she did travel to [place] a few weeks ago. Patient reports history of sinus infections. Patient has been taking phtd-kse-oilwlyb airborne and Nubia-Evans Plus with little relief. Patient is a nonsmoker. Patient denies shortness of breath, wheezing, cough, nausea, vomiting or diarrhea. MD elicited complaint: sore throat and nasal congestion Onset (ago): day(s) (3) Able to tolerate fluids by mouth: Yes Exacerbating factors: swallowing Context: sick contacts Treatments prior to arrival: cold medicine Related Data Home Medications ?Medication ?Instructions ?Recorded ?Confirmed ?Last Taken ?Type guselkumab 100 mg/mL subcutaneous 100 mg subcut ONCE 03/12/23 Unknown History syringe (Tremfya) multivitamin 1 tablet PO DAILY 03/12/23 Unknown History Allergies Allergy/AdvReac Type Severity Reaction Status Date / Time No Known Allergies Allergy Verified 06/06/24 10:43 Review of Systems Constitutional: Constitutional: Reports chills, Denies fatigue, Denies fever(s) and Denies weakness ENT: Denies dysphagia, Denies vertigo, Denies dizziness, Denies epistaxis, Reports nasal congestion and Reports sore throat Respiratory: Respiratory: Denies cough, Denies dyspnea and Denies wheezing Gastrointestinal: Gastrointestinal: Denies diarrhea, Denies nausea and Denies vomiting Musculoskeletal: Musculoskeletal: Denies arthralgias and Denies joint swelling Integumentary/Breasts: Skin/Breast: Denies pruritus, Denies erythema, Denies rash and Denies skin ulcer Neurologic: Denies vertigo, Denies dizziness, Denies syncope and Denies headache(s) [facility] Past Medical History Medical History IBS (irritable bowel syndrome) Arthritis Allergies Kidney stone Surgical History Surgical History H/O total hysterectomy (~1999) H/O lithotripsy Family History Family History Father Pancreatic cancer Diabetes mellitus Heart disease Mother Breast cancer Heart disease Sibling Melanoma Social History Social History Smoking status: Never smoker Alcohol intake: current Alcohol use details: once a month Substance use: never Substance use type: does not use Living arrangements: with family Occupation/Education: occupation Additional occupation/education comments: Self-employed Gender identity (if verbalized by the patient): Female Agree to blood products: Yes Comments At time of signature, I agree with nursing past medical, surgical, social and family history. There is no relevant family history pertinent to the presenting complaint. Exam Const: General: healthy appearing and no acute distress Nutritional Appearance: well nourished Orientation/consciousness: patient oriented x3 Limitations: no limitations HENMT: Head: normal to inspection Ears: external ears normal, TM's normal bilaterally and EAC's normal Face and sinus: normal facial exam Mouth: Yes Normal oral and palatal mucosa present and Yes moist mucous membranes Throat: uvula midline Other: Moderate nasal congestion noted on right; moderate erythema noted to posterior oropharynx with 1+ swelling noted to bilateral tonsils Eyes: Conjunctivae: conjunctivae normal Neck: Neck: normal visual inspection Resp: Effort & Inspection: normal respiratory effort and not labored Auscultation: clear to auscultation bilaterally, no crackles, no rales, no rhonchi and no wheezes Cardio: Rate: regular rate Rhythm: regular rhythm Heart sounds: no murmurs Skin: General skin exam: normal color Rashes: no rashes Neuro: General: patient oriented x3 and moves all extremities Speech: normal speech Gait exam (Neuro): Normal gait present Psych: Mental Status: mental status grossly normal Affect: normal affect Attitude: cooperative Course Course Level of Care: Express Care Visit Vital Signs Vital signs: Vital Signs Temperature 36.3 C L 06/06/24 10:45 Pulse Rate 76 06/06/24 10:45 Respiratory Rate 18 06/06/24 10:45 Blood Pressure 144/84 H 06/06/24 10:45 Pulse Oximetry 99 06/06/24 10:45 Oxygen Delivery Room Air 06/06/24 10:45 Temperature 36.3 C L 06/06/24 10:45 Pulse Rate 76 06/06/24 10:45 Respiratory Rate 18 06/06/24 10:45 Blood Pressure 144/84 H 06/06/24 10:45 Pulse Oximetry 99 06/06/24 10:45 Oxygen Delivery Room Air 06/06/24 10:45 MDM - URI/Sore Throat MDM Narrative Medical decision making narrative: Discussed negative lab results with patient. Patient has symptoms are likely viral at this time. Will have patient take Claritin and Flonase daily. Will also have patient take short course of prednisone to help with congestion. Instructed to have patient follow-up with primary care provider if symptoms are improved. Differential Diagnosis Differential diagnosis: Likely otitis media, sinusitis and viral infection Lab Data Labs: Lab Results 06/06/24 06/06/24 06/06/24 Range/Units 10:59 11:00 11:17 POC Influenza A Ag Negative (Negative) POC Influenza B Ag Negative (Negative) POC SARS CoV-2 Ag Negative (Negative) POC Grp A Strep Screen Negative (Negative) Critical Care Time Critical Care Time Critical Care Time: No Discharge Plan Discharge Clinical Impression: Viral infection Patient Disposition: Home, Self-Care Condition: Stable Instructions: Viral Syndrome (ED) Additional Instructions: Rest Increase fluids new line take Claritin and Flonase daily Take prednisone as prescribed Follow-up with primary care provider if symptoms not improved Proceed to the emergency room if symptoms worsen Patient Language: Ukrainian Prescriptions: New loratadine [Claritin] 10 mg tablet 10 mg PO DAILY Qty: 20 0RF fluticasone propionate [Flonase Allergy Relief] 50 mcg/actuation spray,suspension 1 spray intranasal BID Qty: 16 0RF Rx Instructions: administer into each nostril prednisone 20 mg tablet 40 mg PO DAILY 5 Days Qty: 10 0RF No Action Tremfya 100 mg/mL syringe 100 mg subcut ONCE multivitamin Tablet 1 tablet PO DAILY citalopram 10 mg tablet See Rx Instructions .ROUTE .COMPLEX Qty: 90 0RF Dose Instruction: TAKE 1 TABLET BY MOUTH EVERY DAY Rx Instructions: TAKE 1 TABLET BY MOUTH EVERY DAY rifampin 300 mg capsule 600 mg PO DAILY Qty: 180 1RF Follow-up/Referrals: PHYSICIAN,DOMESTIC FREIGHT FORWARDER [Primary Care Provider] -
[2024-06-06 11:01] LABS: EDCOVIDSCREEN Negative (Negative)
[2024-06-06 11:01] LABS: EDINFLUASCREEN Negative (Negative); EDINFLUBSCREEN Negative (Negative)
[2024-06-06 11:19] LABS: EDSTREPNEGPOS1 Negative (Negative)
== END 2024-06-06 11:29 | disposition home or self-care (01) ==
PROVIDERS: Emergency Provider Nurse Practitioner Family
DX: B34.9 Viral infection, unspecified (principal); Z20.822 Contact with and (suspected) exposure to COVID-19; M19.90 Unspecified osteoarthritis, unspecified site
CPT/HCPCS: 87081; 87426; 87804; 87880; 99213; G0463

== ENCOUNTER 2024-06-13 08:34 | Emergency (ER) | payer OTHER, SELFPAY ==
--- OUTSIDE RECORDS SUMMARY | 2024-06-13 08:35 | XMS_ITS | Clinical Summary ---
Author Organization [facility] Address [address] [place] [address] Care Team Providers Care Lens Inserter Name Role Phone Shakeel Canada MD Primary Care Provider [phone] Allergies No known active allergies Medications Multiple [...] Department Care Team Description 04/07/2024 8:00 AM MACHINE BUNCH MAKER Office Visit [facility] Family & Internal Medicine [address] [address] Renee [place]anto, [place] Congestion (Head-sinus, [...] Comments Blood Pressure 138/80 04/07/2024 7:48 AM MACHINE BUNCH MAKER Pulse 73 04/07/2024 7:48 AM MACHINE BUNCH MAKER Temperature 36.1 C (97 F) 04/07/2024 7:48 AM MACHINE BUNCH MAKER Respiratory Rate 20 04/07/2024 7:48 AM MACHINE BUNCH MAKER Oxygen Saturation 97% 04/07/2024 7:48 AM MACHINE BUNCH MAKER Inhaled Oxygen Concentration - - Weight 82.1 kg (181 lb) 04/07/2024 7:48 AM MACHINE BUNCH MAKER Height 162.6 cm (5' 4 ) 04/07/2024 7:48 AM MACHINE BUNCH MAKER Body Mass Index 31.07 04/07/2024 7:48 AM MACHINE BUNCH MAKER Plan of Treatment Health Maintenance Due Date [...] - 1-dose 75+ series) 2037 PHQ-2 (Physician [employer]) Completed 04/07/2024 Meningococcal B Vaccine Aged Out [...] ANTONY DEVON DIGI Routine 05/14/2023 8:20 AM MACHINE BUNCH MAKER Encounter for screening mammogram for malignant neoplasm of breast COLONOSCOPY/EGD GENERIC (SCAN ORDER) Routine 11/18/2018 from Last 3 Months or Most Recently Relevant to Health Maintenance Results * (ABNORMAL) CORONAVIRUS (COVID-19) INFLUENZA A & B ANTIGEN IA PANEL (04/07/2024) CORONAVIRUS ANTIGEN IA POSITIVE(A) NEGATIVE [id number], [place] INFLUENZA A NEGATIVE NEGATIVE [id number] IN[facility] B NEGATIVE NEGATIVE [id number], [facility] Internal Control: VALID VALID [id number], [place] NASAL STRUCTURE / Unknown 04/07/2024 us Renee MEYER MICROBIOLOGY - GENERAL ORDER RAUL Final Result -[id number], [place] [address] [place] [address], [place] [phone] * MG SCREENING W ANTONY DEVON DIGI (05/14/2023 8:20 AM MACHINE BUNCH MAKER) Anatomical Region Laterality Modality Breast Bilateral Mammography [...] 07/09/2023 2:48 PM us Dorys R Jahaira NUT PACKER MAMMO Final Resul t * COLONOSCOPY/EGD (11/18/2018) us Documents Scanned SCANNING Final Result from Last 3 Months or Most Recently Relevant to Health Maintenance Insurance Care Teams Lens Inserter Relationship Specialty Start Date End Date Shakeel Canada MD [address] [place] [address] PCP - General FAMILY PRACTICE 11/16/22
--- OUTSIDE RECORDS SUMMARY | 2024-06-13 08:35 | XMS_ITS | Encounter Summary ---
Author Organization [facility] Address [address] [place] [address] Care Team Providers Care Fixture Repairer Fabricator Name Role Phone Unavailable Primary Care Provider Unavailabl e Encounter Details Date Type Department Care Team (Late st Contact Info) Description 04/17/2022 Lab Requisition [facility] DermPath Lab [address] [place] [address] Aldo Berry MD [address] [place], [place] [id number] Social History Tobacco Use Types Packs/Day Years [...] Comments DERMATOPATHOLOGY Routine 04/13/2022 12:0 0 AM NEEDLE MOLDER documented in this encounter Results * DERMATOPATHOLOGY (04/13/2022 12:00 AM NEEDLE MOLDER) Case Report Dermatopathology Report Case: [id number] Authorizing Provider: Aldo Berry MD Collected: 04/13/2022 12:00 AM Ordering Location: [facility] DermPath Lab Received: 04/17/2022 07:53 AM Pathologist: Emma Mejia MD Specimen: Skin, right mid dorsum hand 1:48 PM NEEDLE MOLDER DERMATOPATHOLOGY LABORATORY Final Diagnosis Specimen A. SKIN, right mid dorsum hand: SQUAMOUS PROLIFERATION (D48.5) (see microscopic description and comment) 3 1:48 PM [facility] DERMATOPATHOLOGY LABORATORY Clinical History VV vs SCC Path# [id number] 3 1:48 PM [facility] DERMATOPATHOLOGY LABORATORY Gross Description Specimen A: Received is one formalin filled container labeled with the patient's name and designated right mid dorsum hand. The specimen consists of a shave biopsy measuring 6x4x1 mm. Jar 0. 3 1:48 PM [facility] DERMATOPATHOLOGY LABORATORY Microscopic Description Specimen A. SKIN, [...] and squamous cell carcinoma. 3 1:48 PM [facility] DERMATOPATHOLOGY LABORATORY Disclaimer An external and internal positive and negative controls are appropriate for the histochemical, immunohistochemical and immunofluorescence stain(s) in this case (if any), except where stated explicitly. The performance characteristics of the stain(s) cited in this report were developed and its performance characteristic determined by the Dermatopathology Laboratory at [facility], directed by Dr. Dayami Vega. These tests need not be, and therefore are not, approved by the [place] Food and Drug Administration. The tests are used for clinical purposes. Billing Codes Specimen Charges Stain Charges 56613 1 3 1:48 PM [facility] DERMATOPATHOLOGY LABORATORY Embedded Images 3 1:48 PM [facility] DERMATOPATHOLOGY LABORATORY Pathology/Cytolog y TISSUE SPECIMEN FROM SKIN / Unknown 04/13/2022 04/17/2022 7:53 AM NEEDLE MOLDER Aldo Berry MD LAB - PATHOLOGY/CYTO LOGY ORDERABLES DERMATOPATHOLOGY LABORATORY [facility] - Department of Dermatology [address], [address] [phone] documented in this encounter Visit Diagnoses Not on filedocumented in this encounter
--- OUTSIDE RECORDS SUMMARY | 2024-06-13 08:35 | XMS_ITS | Clinical Summary ---
Author Organization [facility] Address [address] [address] Phone Care Team Providers Care Bilingual Interpreter Name Role Phone Terence Lundberg MD Primary Care Provider [phone] Social History Tobacco Use Types Packs/Day Years [...] age to complete this topic Care Teams Bilingual Interpreter Relationship Specialty Start Date End Date Terence Lundberg MD [address] [place] [id number] PCP - General Internal Medicine 07/02/18
--- OUTSIDE RECORDS SUMMARY | 2024-06-13 08:35 | XMS_ITS | Encounter Summary ---
Author Organization [facility] Address [address] [place] [address] Care Team Providers Care Second Worker Name Role Phone Unavailable Primary Care Provider Unavailabl e Encounter Details Date Type Department Care Team (Late st Contact Info) Description 04/16/2023 Lab Requisition [facility] - DermPath Lab [address] [place] [phone] Aldo Berry MD [address] [place] [address] Social History Tobacco Use Types Packs/Day Years [...] Comments DERMATOPATHOLOGY Routine 04/16/2023 12:0 0 AM STRAINER CLEANER documented in this encounter Results * DERMATOPATHOLOGY (04/16/2023 12:00 AM STRAINER CLEANER) Case Report Dermatopathology Report Case: [id number] Authorizing Provider: Aldo Berry MD Collected: 04/16/2023 12:00 AM Ordering Location: [facility] DermPath Lab Received: 04/16/2023 03:30 PM Pathologist: Nicole Perez MD Specimen: Skin, right med lower leg 11:04 AM STRAINER CLEANER DERMATOPATHOLOGY LABORATORY Final Diagnosis Specimen A. SKIN, right med lower leg: SQUAMOUS CELL CARCINOMA, KERATOACANTHOMA TYPE (C44.722) 4 11:04 AM [facility] DERMATOPATHOLOGY LABORATORY Clinical History Invasive SCCA vs. KA. Path# [id number] 11:04 AM [facility] DERMATOPATHOLOGY LABORATORY Gross Description Specimen A: Received is one formalin filled container labeled with the patient's name and designated right med lower leg. The specimen consists of a shave biopsy measuring 8x8x2 mm. Jar 0. 11:04 AM [facility] DERMATOPATHOLOGY LABORATORY Microscopic Description Specimen A. SKIN, right med lower leg: Sections show an endo exophytic crateriform lesion with a keratotic plug, formed by confluent follicle-like structures with relatively large keratinocytes and neutrophilic abscesses. 11:04 AM [facility] DERMATOPATHOLOGY LABORATORY Disclaimer An external and internal positive and negative controls are appropriate for the histochemical, immunohistochemical and immunofluorescence stain(s) in this case (if any), except where stated explicitly. The performance characteristics of the stain(s) cited in this report were developed and its performance characteristic determined by the Dermatopathology Laboratory at [facility], directed by Dr. Daymai Vega. These tests need not be, and therefore are not, approved by the [place] Food and Drug Administration. The tests are used for clinical purposes. Billing Codes Specimen Charges Stain Charges 64960 1 11:04 AM [facility] DERMATOPATHOLOGY LABORATORY Embedded Images 11:04 AM [facility] DERMATOPATHOLOGY LABORATORY Pathology/Cytolog y TISSUE SPECIMEN FROM SKIN / Unknown 04/16/2023 04/16/2023 3:30 PM STRAINER CLEANER Aldo Berry MD LAB - PATHOLOGY/CYTO LOGY ORDERABLES DERMATOPATHOLOGY LABORATORY [facility] - Department of Dermatology [address] [phone] documented in this encounter Visit Diagnoses Not on filedocumented in this encounter
--- OUTSIDE RECORDS SUMMARY | 2024-06-13 08:35 | XMS_ITS | Patient Health Summary ---
Author Organization [facility] Address [address] [address] Care Team Providers Care Anatomy Teacher Name Role Phone Unavailable Primary Care Provider Unavailabl e Note from [facility],non-owned Affiliates and Associated Physician Practices is amultiple site organization consisting of ambulatory clinics and hospital sitesin [place], [place], [place] and [place]. This disclosure is being madepursuant to the Care Everywhere program and may not contain all information available regarding this patient. Last updated 17.[facility] Social History Tobacco Use Types Packs/Day Years Used Date Smoking Tobacco: Never Assessed Sex and Gender Information Value Date Recorded Sex Assigned at Not on file Gender Identity Not on file Sexual Orientation Not on file Procedures * DERMATOPATHOLOGY(Performed 04/16/2023) * DERMATOPATHOLOGY(Performed 04/13/2022) Results * DERMATOPATHOLOGY (04/16/2023 12:[address] [facility]) Only the most recent of2 resultswithin the time period is included. Case Report Dermatopathology Report Case: [id number] Authorizing Provider: Aldo Berry MD Collected: 04/16/2023 12:00 AM Ordering Location: [facility] DermPath Lab Received: 04/16/2023 03:30 PM Pathologist: Nicole Perez MD Specimen: Skin, right med lower leg 4 11:[address] [facility] DERMATOPATHOLOGY LABORATORY Final Diagnosis Specimen A. SKIN, right med lower leg: SQUAMOUS CELL CARCINOMA, KERATOACANTHOMA TYPE (C44.722) 4 11:[address] [facility] DERMATOPATHOLOGY LABORATORY Clinical History Invasive SCCA vs. KA. Path# [id number] 4 11:[address] [facility] DERMATOPATHOLOGY LABORATORY Gross Description Specimen A: Received is one formalin filled container labeled with the patient's name and designated right med lower leg. The specimen consists of a shave biopsy measuring 8x8x2 mm. Jar 0. 11:[address] [facility] DERMATOPATHOLOGY LABORATORY Microscopic Description Specimen A. SKIN, right med lower leg: Sections show an endo exophytic crateriform lesion with a keratotic plug, formed by confluent follicle-like structures with relatively large keratinocytes and neutrophilic abscesses. 4 11:[address] [facility] DERMATOPATHOLOGY LABORATORY Disclaimer An external and internal positive and negative controls are appropriate for the histochemical, immunohistochemical and immunofluorescence stain(s) in this case (if any), except where stated explicitly. The performance characteristics of the stain(s) cited in this report were developed and its performance characteristic determined by the Dermatopathology Laboratory at [facility], directed by Dr. Dayami Vega. These tests need not be, and therefore are not, approved by the [place] Food and Drug Administration. The tests are used for clinical purposes. Billing Codes Specimen Charges Stain Charges 57304 1 4 11:[address] [facility] DERMATOPATHOLOGY LABORATORY Embedded Images 11:[address] [facility] DERMATOPATHOLOGY LABORATORY Pathology/Cytolog y TISSUE SPECIMEN FROM SKIN / Unknown 04/16/2023 04/16/2023 3:30 PM MOTOR EXPERT Aldo Berry MD LAB - PATHOLOGY/CYTO LOGY ORDERABLES DERMATOPATHOLOGY LABORATORY [facility] - Department of Dermatology [address] [phone]
--- OUTSIDE RECORDS SUMMARY | 2024-06-13 08:35 | XMS_ITS | Clinical Summary ---
Author Organization [facility] Address [address] [place] [address] Care Team Providers Care Pharmacy Clinical Specialist Name Role Phone Unavailable Primary Care Provider Unavailabl e Source Comments [facility],non-owned Affiliates and Associated Physician Practices is amultiple site organization consisting of ambulatory clinics and hospital sitesin [place], [place], [place] and [place]. This disclosure is being madepursuant to the Care Everywhere program and may not contain all information available regarding this patient. Last updated 17.[facility] Social History Tobacco Use Types Packs/Day Years [...] to complete this topic MENINGOCOCCAL (Group B) VACC INE SHARED DECISION-MAKING Aged Out No longer eligibl e based on patient's age to complete this topic MENINGOCOCCAL GROUPS A/C/Y/W VACCINE Aged Out No longer eligible b ased on patient's age to complete this topic PNEUMOCOCCAL VACCINE Aged Out No long er eligible based on patient's age to complete this topic Minnie Hayes Personal/Family Self [address] [place] [address]
--- OUTSIDE RECORDS SUMMARY | 2024-06-13 08:35 | XMS_ITS | Referral Summary ---
Author Organization [facility] Address [address] [address] Care Team Providers Care Dedenter Name Role Phone Unavailable Primary Care Provider Unavailabl e Source Comments [facility],non-owned Affiliates and Associated Physician Practices is amultiple site organization consisting of ambulatory clinics and hospital sitesin [place], [place], [place] and [place]. This disclosure is being madepursuant to the Care Everywhere program and may not contain all information available regarding this patient. Last updated 17.[facility] [email or web address] Social History Tobacco Use Types Packs/Day Years Used Date Smoking Tobacco: Never Assessed Sex and Gender Information Value Date Recorded Sex Assigned at Not on file Gender Identity Not on file Sexual Orientation Not on file Plan of Treatment Not on file
[2024-06-13 08:42] VITALS: BP 138/76; PULSE 75; RESP 18; TEMP 36.1; O2SAT 98
--- NOTE | 2024-06-13 09:12 | ED.URI ---
HPI - URI/Sore Throat General Chief Complaint: Upper Respiratory Infection Stated Complaint: sinus infection History of Present Illness HPI Narrative: 64-year-old female presents today with 10 days of cough, sore throat, congestion, and not matting with the eyes. Denies any fevers or shortness of breath. She was here last Saturday checked for COVID flu strep all was negative. Sent home with steroids and told to use hrut-zqd-zuybtkg treatment. Patient states that she never really got any better. Did not really use lijq-hse-phzveoj treatment as she did monitor herself out because she felt dry already but did complain of congestion and cough. Related Data Home Medications ?Medication ?Instructions ?Recorded ?Confirmed ?Last Taken ?Type guselkumab 100 mg/mL subcutaneous 100 mg subcut ONCE 03/12/23 Unknown History syringe (Tremfya) multivitamin 1 tablet PO DAILY 03/12/23 Unknown History omeprazole 40 mg capsule,delayed mg 06/13/24 Unknown History release Allergies Allergy/AdvReac Type Severity Reaction Status Date / Time No Known Allergies Allergy Verified 06/13/24 08:45 Review of Systems Review of Systems: All systems reviewed & are unremarkable except as noted in HPI and below Constitutional: Constitutional: Reports headache(s) Eyes: Eyes: Reports as per HPI ENT: Reports headache(s), Reports post nasal drip and Reports sinus pressure Cardiovascular: Cardiovascular: Reports as per HPI Respiratory: Respiratory: Reports as per HPI Genitourinary: Genitourinary: Reports as per HPI Musculoskeletal: Musculoskeletal: Reports as per HPI Integumentary/Breasts: Skin/Breast: Reports as per HPI Neurologic: Reports headache(s) Psychiatric: Psychiatric: Reports as per HPI Endocrine: Endocrine: Reports as per HPI Hematologic/Lymphatic: Hematologic/Lymphatic: Reports as per HPI Allergic/Immunologic: Allergic/Immunologic: Reports as per HPI PMF Past Medical History Medical History IBS (irritable bowel syndrome) Arthritis Allergies Kidney stone Surgical History Surgical History H/O total hysterectomy (~1999) H/O lithotripsy Family History Family History Father Pancreatic cancer Diabetes mellitus Heart disease Mother Breast cancer Heart disease Sibling Melanoma Social History Social History Smoking status: Never smoker Alcohol intake: current Alcohol use details: once a month Substance use: never Substance use type: does not use Living arrangements: with family Occupation/Education: occupation Additional occupation/education comments: Self-employed Gender identity (if verbalized by the patient): Female Agree to blood products: Yes Exam Const: General: cooperative, healthy appearing, comfortable, no acute distress and well developed Orientation/consciousness: patient oriented x3 HENMT: Head: normal to inspection Face/Nose/Sinus: Abnormal mucous membranes and turbinates present boggy bilateral and sinuses nontender Eyes: General: appearance normal, both eyes and all related structures Resp: Effort & Inspection: normal respiratory effort and able to speak in complete sentences Auscultation: clear to auscultation bilaterally Cardio: Rate: regular rate Rhythm: regular rhythm Heart sounds: S1 normal heart sound present and S2 normal heart sound present Skin: General skin exam: normal color Neuro: General: patient oriented x3 Cognition (Neuro): normal cognition Speech: normal speech Psych: Mental Status: mental status grossly normal Course Course Level of Care: Express Care Visit Vital Signs Vital signs: Vital Signs Temperature 97.0 F L 06/13/24 08:42 Pulse Rate 75 06/13/24 08:42 Respiratory Rate 18 06/13/24 08:42 Blood Pressure 138/76 06/13/24 08:42 Pulse Oximetry 98 06/13/24 08:42 Oxygen Delivery Room Air 06/13/24 08:42 Temperature 97.0 F L 06/13/24 08:42 Pulse Rate 75 06/13/24 08:42 Respiratory Rate 18 06/13/24 08:42 Blood Pressure 138/76 06/13/24 08:42 Pulse Oximetry 98 06/13/24 08:42 Oxygen Delivery Room Air 06/13/24 08:42 MDM - URI/Sore Throat MDM Narrative Medical decision making narrative: 64-year-old female HPI is noted. Differentials include But not limited to viral infection, acute sinusitis, pneumonia. Patient without fever shortness of breath no suspicion for pneumonia at this time lungs are clear. Is with sinus tenderness and continued congestion 10 days. Will treat for acute sinusitis with Augmentin at this time. Encourage Flonase usage and Mucinex DM as needed for cough prednisone was previously prescribed will not prescribe again. Medical Records Attestation: I reviewed the patient's medical records. Discharge Plan Discharge Clinical Impression: Acute bacterial sinusitis Patient Disposition: Home, Self-Care Condition: Stable Instructions: Antibiotic Form, Sinusitis (ED) Patient Language: Lithuanian Prescriptions: New fluticasone propionate [24 Hour Allergy Relief] 50 mcg/actuation spray,suspension 2 spray intranasal DAILY Qty: 16 0RF Rx Instructions: administer into each nostril amoxicillin-pot clavulanate 875-125 mg tablet 1 tablet PO Q12H Qty: 14 0RF dextromethorphan-guaifenesin [Mucus DM Max ER] 60-1,200 mg tablet extended release 12 hr 1 tablet PO Q12H Qty: 20 0RF No Action fluticasone propionate [Flonase Allergy Relief] 50 mcg/actuation spray,suspension 1 spray intranasal BID Qty: 16 0RF Rx Instructions: administer into each nostril prednisone 20 mg tablet 40 mg PO DAILY 5 Days Qty: 10 0RF omeprazole 40 mg capsule,delayed release(DR/EC) Tremfya 100 mg/mL syringe 100 mg subcut ONCE multivitamin Tablet 1 tablet PO DAILY Follow-up/Referrals: UNKNOWN,DOCTOR [Primary Care Provider] - Time of Disposition: 09:24
== END 2024-06-13 09:28 | disposition home or self-care (01) ==
PROVIDERS: Emergency Provider Nurse Practitioner Family
DX: J01.90 Acute sinusitis, unspecified (principal); M19.90 Unspecified osteoarthritis, unspecified site; Z90.710 Acquired absence of both cervix and uterus
CPT/HCPCS: 99213; G0463